=== PATIENT | female | born 1985 | race Caucasian/White ===

== ENCOUNTER 2018-07-17 02:15 | Inpatient (IN) ==
[2018-07-17] MEDS ORDERED: ceFAZolin 2 GM Premix Inj 2 GM/50 ML PIGGYBACK IV.SIG PRN (02:59)
[2018-07-17] MEDS ORDERED: Citric Acid/Sodium Citrate Liq 30 ML UDC PO SCH (03:00)
--- NOTE | 2018-07-17 03:10 | P.HPOB ---
History of Present Illness Primary Care Physician: MD Dr. Katina Bar Chief Complaint: Water broke and ja History of Present Illness: Patient is 32-year-old white female at 37 weeks and 6 days with twins presents with spontaneous rupture of the membranes in her amnio sure is positive. Patient is ja every 2-3minutes painfully. She is scheduled for a of the first twin is breech and tonight it is still breech confirmed by ultrasound and palpation. She is also planning a tubal ligation and salpingectomy bilaterally she was planning to have that with Dr. Perry with Dr. Mohr is ammunition components inspector tonight Weeks Gestation:: 37 Para: 2 : 3 Review of Systems All other systems reviewed negative except as stated in HPI [facility] - History History Provided By: Patient - Medical History Medical History: Medical History (Last Updated 07/17/18 @ 03:04 by Kumar Bingham MD) Hypothyroidism Scoliosis - Social History I have reviewed the patient's Social History: Yes - Tobacco History Smoking Status: Never smoker - Alcohol History How Often Do You Have a Drink Containing Alcohol: Never - Substance Use History Substance History: No History of Abuse - Travel History History of Recent Travel: No Recent Travel in the [place] Within the Last 8 Weeks: No Recent Travel Out of the Country Within the Last 8 Weeks: No Medications and Allergies Active Medications: Active Medications Citric Acid/Sodium Citrate (Sodium Citrate/Citric Acid Liq) 30 ml PO PERSONAL DEVELOPMENT [employer] [facility] Stop: 07/21/18 02:59 Cefazolin Sodium/Dextrose (Ancef 2 Gm Premix Inj) 2 gm in 50 mls @ 100 mls/hr IV.SIG PERSONAL DEVELOPMENT MENTOR PRN PRN Reason: ON-CALL Stop: 07/21/18 02:58 Lactated Ringer's (Lr 1000 Ml Inj) 1,000 mls @ 2,000 mls/hr IV.SIG .Q30M ONE Stop: 07/17/18 03:28 Lactated Ringer's (Lr 1000 Ml Inj) 1,000 mls @ 150 mls/hr IV.CONT .Q6H40M [facility] Allergies Allergy/AdvReac Type Severity Reaction Status Date / Time No Known Allergies Allergy Uncoded 09/12/15 22:53 Home Medications Medication Instructions Recorded Confirmed Type vit-iron fum-folic ac 1 tab PO DAILY 07/17/18 07/17/18 History [ Vitamin] Exam Vital signs: Vital Signs 07/17/18 02:30 07/17/18 02:40 07/17/18 02:44 Temperature 98.3 F Pulse Rate 52 L 86 Respiratory Rate 18 Blood Pressure 147/88 H 07/17/18 02:45 Temperature Pulse Rate 90 Respiratory Rate Blood Pressure Narrative: GENERAL: Well-nourished, well-developed patient. SKIN: Warm and dry.+ tattoos HEAD: Normocephalic and atraumatic. EYES: No scleral icterus. No injection or drainage. ENT: No nasal drainage noted. Mucous membranes pink. Airway patent. NECK: Supple, trachea midline. No JVD. CARDIOVASCULAR: Regular rate and rhythm without murmurs, gallops, or rubs. RESPIRATORY: Breath sounds equal bilaterally. No accessory muscle use. BREASTS: Bilateral exam showed no masses , no retractions, no nipple discharge. ABDOMEN/GI: Abdomen soft, non-tender, bowel sounds present, no rebound, no guarding Gravid to [-40] weeks size Fundal Height: [40-] GENITOURINARY: External Genitalia: intact and normal in appearance BUS glands: [-] Cervix: [post-] Dilatation: [6-] Effacement: [50-] Station: [-3] Presentation: [-breech baby A] Membranes: [ ruptured]+ amnisure Uterine Contractions: [-q 3 min] FHT's: Category: [1-] Baseline: [-133/137] Reactive: [-R] Variability: [-mod] Decels: [-0] + accels EXTREMITIES: No cyanosis or edema. BACK: Nontender without obvious deformity. No CVA tenderness. NEUROLOGICAL: Awake and alert. Motor and sensory grossly within normal limits. Five out of 5 muscle strength in all muscle groups. Normal speech. Results - Labs Labs: Amnio sure positive Group B Strep: Negative - Imaging Bedside ultrasound confirms baby A is breech Caprini VTE Risk Assessment Caprini VTE Risk Assessment: No/Low Risk (score <= 1) Caprini Risk Assessment Model: Point Value = 1 Point Value = 2 Point Value = 3 Point Value = 5 Age 41-60 Minor surgery BMI > 25 kg/m2 Swollen legs Varicose veins or History of unexplained or recurrent spontaneous Oral contraceptives or hormone replacement Sepsis (< 1 month) Serious lung disease, including pneumonia (< 1 month) Abnormal pulmonary function Acute myocardial infarction Congestive heart failure (< 1 month) History of inflammatory bowel disease Medical patient at bed rest Age 61-74 Arthroscopic surgery Major open surgery (> 45 min) Laparoscopic surgery (> 45 min) Malignancy Confined to bed (> 72 hours) Immobilizing plaster cast Central venous access Age >= 75 History of VTE Family history of VTE Factor V Leiden Prothrombin [id number] Lupus anticoagulant Anticardiolipin antibodies Elevated serum homocysteine Heparin-induced thrombocytopenia Other congenital or acquired thrombophilia Stroke (< 1 month) Elective arthroplasty Hip, pelvis, or leg fracture Acute spinal cord injury (< 1 month) Prophylaxis Regimen: Total Risk Factor Score Risk Level Prophylaxis Regimen 0-1 Low Early ambulation 2 Moderate Order ONE of the following: *Sequential Compression Device (SCD) *Heparin 5000 units SQ BID 3-4 Higher Order ONE of the following medications: *Heparin 5000 units SQ TID *Enoxaparin/Lovenox 40 mg SQ daily (WT < 150 kg, CrCl > 30 mL/min) *Enoxaparin/Lovenox 30 mg SQ daily (WT < 150 kg, CrCl > 10-29 mL/min) *Enoxaparin/Lovenox 30 mg SQ BID (WT < 150 kg, CrCl > 30 mL/min) AND/OR *Sequential Compression Device (SCD) 5 or more Highest Order ONE of the following medications: *Heparin 5000 units SQ TID (Preferred with Epidurals) *Enoxaparin/Lovenox 40 mg SQ daily (WT < 150 kg, CrCl > 30 mL/min) *Enoxaparin/Lovenox 30 mg SQ daily (WT < 150 kg, CrCl > 10-29 mL/min) *Enoxaparin/Lovenox 30 mg SQ BID (WT < 150 kg, CrCl > 30 mL/min) AND *Sequential Compression Device (SCD) Assessment and Plan - Diagnosis (1) Amniotic fluid leaking Code(s): O42.90 - Premature rupture of membranes, unspecified as to length of time between rupture and onset of labor, unspecified weeks of gestation Status : Acute (2) Twin gestation in third trimester Code(s): O30.003 - Twin , unspecified number of placenta and unspecified number of amniotic sacs, third trimester Status: Acute (3) Uterine contractions during Code(s): O62.2 - Other uterine inertia Status: Acute (4) Breech presentation of fetus palpable vaginally Code(s): O32.1XX0 - Maternal care for breech presentation, not applicable or unspecified Status: Acute (5) with 37 or more completed weeks gestation Status: Acute - Plan This multiparous patient is a 37-38 weeks with twins baby A is breech she has spontaneous rupture of the membranes and labor with a cervix that is 6/50/-3 with a palpable breech, ultrasound confirms baby A is in breech presentation Plan is for the patient was section for delivery due to breech presentation and the first twin, she is also to have a tubal ligation in the form of salpingectomy bilaterally Her private advanced practice rn on-call is Dr. Mohr and he is been notified is on his way to the hospital
[2018-07-17] MEDS ORDERED: Morphine Sulfate PF Inj 5 MG/10 ML Ampul ONE ×2 (03:22→03:26)
[2018-07-17 03:24] LABS: Baso % (Auto) 0.3 % (0.0-2.0); Eos # (Auto) 0.1 th/mm3 (0.0-0.4); Eos % (Auto) 1.2 % (0.0-4.0); Hematocrit 31.8 % (35.0-46.0); Hemoglobin 10.1 gm/dL (11.6-15.3); Lymph # (Auto) 1.5 th/mm3 (1.0-4.8); Mean Corpuscular HGB Conc 31.7 % (32.0-36.0); Mean Corpuscular Hemoglobin 22.9 pg (27.0-34.0); Mean Corpuscular Volume 72.2 fL (80.0-100.0); Mean Platelet Volume 9.5 fL (7.0-11.0); Mono # (Auto) 0.5 th/mm3 (0.0-0.9); Mono % (Auto) 6.8 % (0.0-8.0); Neut # (Auto) 5.8 th/mm3 (1.8-7.7); Neut % (Auto) 72.7 % (16.0-70.0); Platelet Count 159 th/mm3 (150-450)
[2018-07-17] MEDS ORDERED: ceFAZolin 1 GM Premix Inj 2 GM/100 ML PIGGYBACK IV.SIG ONE (03:26)
[2018-07-17 03:30] LABS: Bilirubin,Urine Negative (Negative); Clarity,Urine Clear (Clear); Color,Urine Yellow (Yellw/Straw); Glucose,Urine (UA) Negative (Negative); Leukocyte Esterase,Urine Small (Negative); Mucus,Urine Few /lpf (Occasional); Nitrite,Urine Negative (Negative); Specific Gravity,Urine 1.012 (1.002-1.035); Squamous Epithelial Cell,Urine 2 /hpf (0-5)
[2018-07-17 03:32] LABS: Amphetamine Urine With Conf Neg (Neg); Benzodiazepine Urine With Conf Neg (Neg); Cocaine Urine With Conf Neg (Neg); Opiates Urine With Conf Neg (Neg)
[2018-07-17 03:37] LABS: Cannabinoid Urine With Conf Neg (Neg)
[2018-07-17 03:50] LABS: Alanine Aminotransferase 16 U/L (10-53); Albumin 2.5 g/dL (3.4-5.0); Anion Gap 8 meq/L (5-15); Aspartate Aminotransferase 16 U/L (15-37); Blood Urea Nitrogen 10 mg/dL (7-18); Calcium 8.3 mg/dL (8.5-10.1); Carbon Dioxide 22.2 meq/L (21.0-32.0); Chloride 110 meq/L (98-107); Glomerular Filtration Rate Greater Than 89 mL/min (>89); Glucose,Random 113 mg/dL (74-106); Sodium 140 meq/L (136-145)
[2018-07-17 03:52] LABS: Alkaline Phosphatase 188 U/L (45-117); Total Protein 6.4 g/dL (6.4-8.2)
[2018-07-17 03:54] LABS: Protein/Creatinine Ratio,Urine 0.51 (0.00-0.14); Total Protein,Urine Random 45.8 mg/dL (0-11.8)
[2018-07-17] MEDS ORDERED: Oxytocin 30 Units/500ml Premix 30 UNITS/500 ML BAG IV.SIG ONE (05:12)
[2018-07-17] MEDS ORDERED: Ketorolac Inj 30 MG/ML (IVP) Vial IV.PUSH ONE (05:12)
[2018-07-17] MEDS ORDERED: Acetaminophen 325 MG Tablet PO PRN (05:12)
--- NOTE | 2018-07-17 05:12 | P.OP ---
Surgeon: Jozef Mohr MD Operation and Findings: Preoperative diagnosis: 1. Intrauterine at 37 weeks and 6 days 2. Dichorionic diamniotic twin gestation 3. Labor and spontaneous rupture of membranes 4. Malpresentation of fetus A 5. Elevated blood pressures 6. Desired sterilization Postop diagnosis 1. Same as above status post delivery Procedure 1. Primary low transverse section and bilateral tubal ligation, modified Ashleigh technique Surgeon Dr. Jozef Mohr Ophthalmic Medical Technician: [place] labor and delivery nursing and scrub staff Findings: 1. Baby A: Female at 4:04 AM, Apgars 8 and 9, weight 2730 g 2. Baby B: Male at 4:07 AM, Apgars 6 and 9, weight 3340 g 3. Intact placenta test, three-vessel cord x2 at 4:08 AM 4. Normal uterus, bilateral ovaries and fallopian tubes Anesthesia: Spinal with Astramorph Specimen: Placenta to donation, bilateral mid fallopian tube segments to pathology, together, routine Estimated blood loss: 600 cc Fluid replacement: 1800 cc lactated Ringer's and Pitocin Urine output: 400 cc clear Via Richardson DVT prophylaxis: SCDs Antibiotics: 2 g Ancef preoperatively Counts: correct x2 Time out done: yes Disposition: Stable to PACU, the patient's blood pressures were elevated requiring treatment during her surgery, at the end of the case she denied any signs or symptoms of preeclampsia, on review of her blood work she does meet the criteria, I discussed possible need for antihypertensives for BP control or magnesium for seizure prophylaxis if she continues to have severe features of preeclampsia. Indications: Patient is a 32-year-old who presented with confirmed ruptured membranes of baby A which was confirmed to be in the breech presentation, she had been scheduled for a this week. She also was found to have new mildly elevated blood pressures and no signs or symptoms of preeclampsia. I counseled her for primary and tubal ligation. Description of procedure: The patient was taken to the operating room and after spinal anesthesia was performed she was positioned and supine position with arms out in a left lateral tilt, the abdomen was prepped and draped in sterile fashion, a Pfannenstiel incision was made and carried down sharply to the fascia which was nicked on either side of the midline, this was extended bilaterally, the fascia was elevated superiorly and inferiorly and the rectus muscles were sharply dissected off the overlying fascia, the peritoneum was entered digitally and retracted laterally. A bladder flap was developed with Metzenbaum scissors at the lower uterine segment, the hysterotomy was made in the lower uterine segment with a scalpel in a curvilinear fashion, it was extended cephalad-caudad manner, I inserted my hand into the hysterotomy and the the lower extremities of baby A were elevated through the hysterotomy and the baby delivered expeditiously without any needed maneuvers. Delayed cord clamping was allowed, then baby A was handed off to the staff. Attention was turned to baby B, the feet were grasped through the amniotic sac and elevated through the hysterotomy, amniotomy was performed and the fetus was delivered with ease up to the scapula, with internal rotation of both upper extremities they were delivered and with maintaining head flexion the fetus was fully delivered with fundal pressure. Delayed cord clamping was allowed and baby B was handed off to staff. Pitocin was bolused and with uterine massage and cord traction the placentas were delivered, uterus was cleared of clot and debris, the uterus was exteriorized and the hysterotomy was closed with 2 layers, first with 0 locking delayed absorbable braided suture, and a second imbricating layer of the same suture. The abdomen and hysterotomy were irrigated, inspected, and found to be hemostatic. Using 0 plain gut suture in a modified Ashleigh technique was used to ligate a mid aspect segment of both fallopian tubes. The cut edges were found to be hemostatic. The uterus was returned to the abdomen and the hysterotomy was reinspected and found to be hemostatic as well as the ligated portions of the fallopian tubes. The fascia was closed from left to right with 0 running delayed absorbable suture. The subcutaneous tissue was irrigated, inspected, hemostasis was appreciated, the space was closed with running 2-0 delayed absorbable monofilament suture. The skin was closed with 3-0 delayed absorbable monofilament suture in a subcuticular fashion and then a dressing was applied and the patient tolerated procedure well was transferred to PACU.
[2018-07-17] MEDS ORDERED: Labetalol HCl Inj 100 MG/20 ML Vial IV.PUSH PRN ×3 (05:13→05:34)
[2018-07-17] MEDS ORDERED: Naloxone Inj 0.4 MG/ML Vial IV.PUSH PRN (05:15)
[2018-07-17] MEDS ORDERED: Ketorolac Inj 30 MG/ML (IVP) Vial ONE (05:42)
[2018-07-17] MEDS ORDERED: Oxytocin 30 Units/500ml Premix 30 UNITS/500 ML BAG ONE (05:45)
--- NOTE | 2018-07-17 06:28 | P.OBGPN ---
QUERIED PDMP AND REVIEWED REPORT
[2018-07-17] MEDS ORDERED: Oxytocin 30 Units/500ml Premix 30 UNITS/500 ML BAG IV.SIG PRN (10:12)
[2018-07-17] MEDS: Ketorolac Inj 30 MG/ML (IVP) Vial IV.PUSH SCH ×3 (11:13→23:12)
[2018-07-17] MEDS: Polyethylene Glycol 3350 17 GM Packet PO SCH (11:15)
[2018-07-18 05:56] LABS: Baso % (Auto) 0.2 % (0.0-2.0); Eos # (Auto) 0.1 th/mm3 (0.0-0.4); Eos % (Auto) 1.6 % (0.0-4.0); Hematocrit 24.9 % (35.0-46.0); Lymph # (Auto) 1.4 th/mm3 (1.0-4.8); Lymph % (Auto) 15.9 % (9.0-44.0); Mean Corpuscular HGB Conc 32.2 % (32.0-36.0); Mean Corpuscular Hemoglobin 23.5 pg (27.0-34.0); Mean Platelet Volume 9.6 fL (7.0-11.0); Mono # (Auto) 0.7 th/mm3 (0.0-0.9); Neut # (Auto) 6.7 th/mm3 (1.8-7.7); Neut % (Auto) 74.3 % (16.0-70.0); Platelet Count 121 th/mm3 (150-450); Red Blood Count 3.41 mil/mm3 (4.00-5.30); Red Cell Distribution Width 16.7 % (11.6-17.2)
[2018-07-18] MEDS: Ketorolac Inj 30 MG/ML (IVP) Vial IV.PUSH SCH (06:01)
[2018-07-18 06:28] LABS: Total Protein 5.2 g/dL (6.4-8.2)
--- NOTE | 2018-07-18 08:49 | P.PNOB ---
Subjective Post op day: 1 Interval history: doing well, twin infants, pain slightly increased today as just 24h after surgery; ambulating and voiding, tolerating diet Objective Result Diagrams: 07/18/18 04:43 07/17/18 03:00 Objective Remarks: GENERAL: Well-nourished, well-developed patient. CARDIOVASCULAR: Regular rate and rhythm without murmurs, gallops, or rubs. RESPIRATORY: Breath sounds equal bilaterally. No accessory muscle use. ABDOMEN/GI: Abdomen soft, non-tender, bowel sounds present. Incision: bandage in place; Clean, dry and intact. Fundus: Firm, non-tender at umbilicus. GENITOURINARY: Light to moderate bleeding. EXTREMITIES: No cyanosis or edema, non-tender, without signs of DVT. Medications and IVs: Active Medications Acetaminophen (Tylenol) 650 mg PO Q6H PRN PRN Reason: PAIN SCALE 1 TO 2 Citric Acid/Sodium Citrate (Sodium Citrate/Citric Acid Liq) 30 ml PO FOSTER CARE WORKER [facility] Stop: 07/21/18 02:59 Last Admin: 07/17/18 03:21 Dose: 30 ml Diphtheria/Pertussis/Tetanus Vacc (Boostrix Vaccine Inj) 0.5 ml IM .ONCE ONE Stop: 07/18/18 16:01 Cefazolin Sodium/Dextrose (Ancef 2 Gm Premix Inj) 2 gm in 50 mls @ 100 mls/hr IV.SIG [employer] WORKER PRN PRN Reason: ON-CALL Stop: 07/21/18 02:58 Lactated Ringer's (Lr 1000 Ml Inj) 1,000 mls @ 150 mls/hr IV.CONT .Q6H40M [facility] Oxytocin (Pitocin 30 Units/Ns 500 Ml Premix) 30 units in 500 mls @ 100 mls/hr IV.SIG UNSCH PRN PRN Reason: Heavy bleeding Ibuprofen (Motrin) 800 mg PO Q8H PRN PRN Reason: cramping Ketorolac Tromethamine (Toradol Inj) 15 mg IV.PUSH Q6H [facility] Stop: 07/18/18 10:59 Last Admin: 07/18/18 06:01 Dose: 15 mg Labetalol HCl (Trandate Inj) 20 mg IV.PUSH NOW PRN PRN Reason: SEE LABEL COMMENTS Labetalol HCl (Trandate Inj) 40 mg IV.PUSH NOW PRN PRN Reason: SEE LABEL COMMENTS Labetalol HCl (Trandate Inj) 80 mg IV.PUSH NOW PRN PRN Reason: SEE LABEL COMMENTS Measles/Mumps/Rubella Vaccine Live (M-M-R Ii Vaccine Inj) 0.5 ml SQ .ONCE ONE Stop: 07/18/18 16:01 Ondansetron HCl (Zofran Odt) 4 mg PO Q4H PRN PRN Reason: NAUSEA Oxycodone/Acetaminophen (Percocet 5/325 Mg) 1 tab PO Q4H PRN PRN Reason: PAIN SCALE 3 TO 5 Last Admin: 07/17/18 23:12 Dose: 1 tab Oxycodone/Acetaminophen (Percocet 5/325 Mg) 2 tab PO Q4H PRN PRN Reason: PAIN SCALE 6 TO 10 Last Admin: 07/18/18 06:01 Dose: 2 tab Polyethylene Glycol (Miralax) 17 gm PO DAILY [facility] Last Admin: 07/17/18 11:15 Dose: 17 gm Sodium Chloride (Ns Flush) 2 ml IV.FLUSH BID [facility] Last Admin: 07/17/18 23:13 Dose: 2 ml Sodium Chloride (Ns Flush) 2 ml IV.FLUSH PRN PRN PRN Reason: FLUSH AFTER USING IV ACCESS Assessment and Plan - Diagnosis (1) S/P primary low transverse Code(s): Z98.891 - History of uterine scar from previous surgery Status: Acute (2) S/P tubal ligation Code(s): Z98.51 - Tubal ligation status Status: Acute (3) Twin delivery by Code(s): O30.009 - Twin , unspecified number of placenta and unspecified number of amniotic sacs, unspecified trimester Status: Acute - Plan POD#1 s/p primary LTCD and BTL for twin malpresentation x 2 and active labor - supportive postop care, support - male s/p circ this AM, both infants doing well and nursery status - anticipate d/c 07/20/18 Discharge Planning: routine
[2018-07-18] MEDS: Senna/Docusate Sodium 8.6/50 MG Tablet PO SCH ×2 (10:47→20:10)
[2018-07-18] MEDS: Polyethylene Glycol 3350 17 GM Packet PO SCH (10:49)
[2018-07-18] MEDS ORDERED: Measles/Mumps/Rubella Vaccine Inj 0.5 ML Vial SQ ONE (16:00)
[2018-07-18] MEDS ORDERED: Diphtheria/Tetanus/Pertussis Vaccine Inj 0.5 ML Syringe IM ONE (16:00)
[2018-07-19] MEDS: Polyethylene Glycol 3350 17 GM Packet PO SCH (09:20)
[2018-07-19] MEDS: Senna/Docusate Sodium 8.6/50 MG Tablet PO SCH ×2 (09:20→22:52)
--- NOTE | 2018-07-19 12:40 | P.PNOB ---
Subjective Post op day: 2 Interval history: pod#2. Doing well, pain well controlled, transitioning well. Objective Vital Signs/I&O: Vital Signs 07/18/18 20:00 07/19/18 08:00 Temperature 98.4 F 98.0 F Pulse Rate 81 75 Respiratory Rate 18 20 Blood Pressure 125/70 127/67 Result Diagrams: 07/18/18 04:43 07/17/18 03:00 Objective Remarks: GENERAL: Well-nourished, well-developed patient. CARDIOVASCULAR: Regular rate and rhythm without murmurs, gallops, or rubs. RESPIRATORY: Breath sounds equal bilaterally. No accessory muscle use. ABDOMEN/GI: Abdomen soft, non-tender, bowel sounds present. Incision: Clean, dry and intact. Fundus: Firm, non-tender at umbilicus. GENITOURINARY: Light to moderate bleeding. EXTREMITIES: No cyanosis or edema, non-tender, without signs of DVT. Medications and IVs: Active Medications Acetaminophen (Tylenol) 650 mg PO Q6H PRN PRN Reason: PAIN SCALE 1 TO 2 Citric Acid/Sodium Citrate (Sodium Citrate/Citric Acid Liq) 30 ml PO REVIEW ANALYST [facility] Stop: 07/21/18 02:59 Last Admin: 07/17/18 03:21 Dose: 30 ml Cefazolin Sodium/Dextrose (Ancef 2 Gm Premix Inj) 2 gm in 50 mls @ 100 mls/hr IV.SIG REVIEW ANALYST PRN PRN Reason: ON-CALL Stop: 07/21/18 02:58 Lactated Ringer's (Lr 1000 Ml Inj) 1,000 mls @ 150 mls/hr IV.CONT .Q6H40M [facility] Oxytocin (Pitocin 30 Units/Ns 500 Ml Premix) 30 units in 500 mls @ 100 mls/hr IV.SIG UNSCH PRN PRN Reason: Heavy bleeding Ibuprofen (Motrin) 800 mg PO Q8H PRN PRN Reason: cramping Last Admin: 07/19/18 09:20 Dose: 800 mg Labetalol HCl (Trandate Inj) 20 mg IV.PUSH NOW PRN PRN Reason: SEE LABEL COMMENTS Labetalol HCl (Trandate Inj) 40 mg IV.PUSH NOW PRN PRN Reason: SEE LABEL COMMENTS Labetalol HCl (Trandate Inj) 80 mg IV.PUSH NOW PRN PRN Reason: SEE LABEL COMMENTS Ondansetron HCl (Zofran Odt) 4 mg PO Q4H PRN PRN Reason: NAUSEA Oxycodone/Acetaminophen (Percocet 5/325 Mg) 1 tab PO Q4H PRN PRN Reason: PAIN SCALE 3 TO 5 Last Admin: 07/19/18 09:20 Dose: 1 tab Oxycodone/Acetaminophen (Percocet 5/325 Mg) 2 tab PO Q4H PRN PRN Reason: PAIN SCALE 6 TO 10 Last Admin: 07/18/18 20:11 Dose: 2 tab Polyethylene Glycol (Miralax) 17 gm PO DAILY [facility] Last Admin: 07/19/18 09:20 Dose: Not Given Senna/Docusate Sodium (Donna-Colace) 1 tab PO BID [facility] Last Admin: 07/19/18 09:20 Dose: 1 tab Sodium Chloride (Ns Flush) 2 ml IV.FLUSH BID [facility] Last Admin: 07/19/18 09:20 Dose: Not Given Sodium Chloride (Ns Flush) 2 ml IV.FLUSH PRN PRN PRN Reason: FLUSH AFTER USING IV ACCESS Assessment and Plan - Diagnosis (1) S/P primary low transverse Code(s): Z98.891 - History of uterine scar from previous surgery Status: Acute (2) S/P tubal ligation Code(s): Z98.51 - Tubal ligation status Status: Acute (3) Twin delivery by Code(s): O30.009 - Twin , unspecified number of placenta and unspecified number of amniotic sacs, unspecified trimester Status: Acute - Plan POD#2 s/p primary LTCD and BTL for twin malpresentation x 2 and active labor - supportive postop care, support - both infants doing well and nursery status - anticipate d/c Th07/20/18 Discharge Planning: routine
[2018-07-19 21:17] VITALS: RESP 18
[2018-07-20 08:18] VITALS: BP 122/85; PULSE 82; TEMP 98.4
[2018-07-20] MEDS: Polyethylene Glycol 3350 17 GM Packet PO SCH (09:09)
--- NOTE | 2018-07-20 09:53 | P.PNOB ---
Subjective Post op day: 3 Interval history: pain well controlled, min bleeding. camelia po. Baby girl has increased wt loss, baby boy has elevated lori levels. Objective Vital Signs/I&O: Vital Signs 07/19/18 20:00 07/20/18 08:00 Temperature 98.2 F 98.4 F Pulse Rate 72 82 Respiratory Rate 18 18 Blood Pressure 122/80 122/85 Result Diagrams: 07/18/18 04:43 07/17/18 03:00 Objective Remarks: GENERAL: Well-nourished, well-developed patient. CARDIOVASCULAR: Regular rate and rhythm without murmurs, gallops, or rubs. RESPIRATORY: Breath sounds equal bilaterally. No accessory muscle use. ABDOMEN/GI: Abdomen soft, non-tender, bowel sounds present. Incision: Clean, dry and intact. Fundus: Firm, non-tender at umbilicus. GENITOURINARY: Light to moderate bleeding. EXTREMITIES: No cyanosis or edema, non-tender, without signs of DVT. Medications and IVs: Active Medications Acetaminophen (Tylenol) 650 mg PO Q6H PRN PRN Reason: PAIN SCALE 1 TO 2 Citric Acid/Sodium Citrate (Sodium Citrate/Citric Acid Liq) 30 ml PO POULTRY DRESSER [facility] Stop: 07/21/18 02:59 Last Admin: 07/17/18 03:21 Dose: 30 ml Cefazolin Sodium/Dextrose (Ancef 2 Gm Premix Inj) 2 gm in 50 mls @ 100 mls/hr IV.SIG POULTRY DRESSER PRN PRN Reason: ON-CALL Stop: 07/21/18 02:58 Lactated Ringer's (Lr 1000 Ml Inj) 1,000 mls @ 150 mls/hr IV.CONT .Q6H40M [facility] Oxytocin (Pitocin 30 Units/Ns 500 Ml Premix) 30 units in 500 mls @ 100 mls/hr IV.SIG UNSCH PRN PRN Reason: Heavy bleeding Ibuprofen (Motrin) 800 mg PO Q8H PRN PRN Reason: cramping Last Admin: 07/20/18 02:58 Dose: 800 mg Labetalol HCl (Trandate Inj) 20 mg IV.PUSH NOW PRN PRN Reason: SEE LABEL COMMENTS Labetalol HCl (Trandate Inj) 40 mg IV.PUSH NOW PRN PRN Reason: SEE LABEL COMMENTS Labetalol HCl (Trandate Inj) 80 mg IV.PUSH NOW PRN PRN Reason: SEE LABEL COMMENTS Ondansetron HCl (Zofran Odt) 4 mg PO Q4H PRN PRN Reason: NAUSEA Oxycodone/Acetaminophen (Percocet 5/325 Mg) 1 tab PO Q4H PRN PRN Reason: PAIN SCALE 3 TO 5 Last Admin: 07/20/18 02:59 Dose: 1 tab Oxycodone/Acetaminophen (Percocet 5/325 Mg) 2 tab PO Q4H PRN PRN Reason: PAIN SCALE 6 TO 10 Last Admin: 07/18/18 20:11 Dose: 2 tab Polyethylene Glycol (Miralax) 17 gm PO DAILY [facility] Last Admin: 07/20/18 09:09 Dose: Not Given Senna/Docusate Sodium (Donna-Colace) 1 tab PO BID [facility] Last Admin: 07/19/18 22:52 Dose: 1 tab Sodium Chloride (Ns Flush) 2 ml IV.FLUSH BID [facility] Last Admin: 07/20/18 09:08 Dose: Not Given Sodium Chloride (Ns Flush) 2 ml IV.FLUSH PRN PRN PRN Reason: FLUSH AFTER USING IV ACCESS Assessment and Plan - Diagnosis (1) S/P primary low transverse Code(s): Z98.891 - History of uterine scar from previous surgery Status: Acute (2) S/P tubal ligation Code(s): Z98.51 - Tubal ligation status Status: Acute (3) Twin delivery by Code(s): O30.009 - Twin , unspecified number of placenta and unspecified number of amniotic sacs, unspecified trimester Status: Acute - Plan POD#3 s/p primary LTCD and BTL for twin malpresentation x 2 and active labor - supportive postop care, support - both infants' d/c tentative at this point - pt d/c Th07/20/18 Discharge Planning: routine
[2018-07-20] MEDS: Senna/Docusate Sodium 8.6/50 MG Tablet PO SCH (10:51)
== END 2018-07-20 18:31 | disposition home or self-care (01) ==
LOC: HOBED 02:15 → H2E 02:45 → H1EA 06:21
PROVIDERS: ADMIT Obstetrics & Gynecology; ATTEND Obstetrics & Gynecology